=== PATIENT | female | born 1970 | race Caucasian/White ===

== ENCOUNTER → 2016-11-02 | Outpatient (CLI) | payer BC ==
[2016-11-02 17:21] LABS: Basophils % (A) 1 %; CH 30.4; CHCM 32.9; Eosinophils # (A) 0.1 k/uL (0-0.7); Eosinophils % (A) 1 %; HCT 42.2 % (34.0-46.0); HDW 2.26; HGB 13.7 gm/dL (11.4-16.0); Luc # (Auto) 0.13; Luc % (Auto) 2; Lymphocytes # (A) 1.9 k/uL (1.0-4.8); Lymphocytes % (A) 27 %; MCHC 32.4 g/dL (31.0-37.0); MCV 92.8 fL (80.0-100.0); Mean Platelet Volume 6.7; Monocytes # (A) 0.3 k/uL (0-1.0); Monocytes % (A) 5 %; Neutrophils # (A) 4.5 k/uL (1.3-7.7); Neutrophils % (A) 64 %; RBC 4.55 m/uL (3.80-5.40); RDW 12.2 % (11.5-15.5); WBC (Perox) 7.55
[2016-11-02 17:44] LABS: Anion Gap 9 mmol/L; Blood Urea Nitrogen 7 mg/dL (7-17); Carbon Dioxide 29 mmol/L (22-30); Chloride 101 mmol/L (98-107); Glucose 96 mg/dL (74-99); Non-African American GFR(MDRD) >60 (>60 ml/min/1.73 sqM); Potassium 4.6 mmol/L (3.5-5.1); Sodium 139 mmol/L (137-145)
== END | disposition home or self-care (01) ==
LOC: LABPAT 16:48
PROVIDERS: ATTEND Obstetrics & Gynecology
DX: Z01.812 Encounter for preprocedural laboratory examination (principal); D25.9 Leiomyoma of uterus, unspecified; N94.6 Dysmenorrhea, unspecified; R10.2 Pelvic and perineal pain
CPT/HCPCS: 80051; 82565; 82947; 84520; 85025; 86850; 86900; 86901

== ENCOUNTER 2016-11-09 06:25 | Day surgery (SDC) | payer BC ==
--- NOTE | 2016-11-04 11:35 | HP ---
DATE OF ADMISSION: 11/09/2016 This is a 46-year-old white female, 4, para 2-0-2-2, who presented with an increasing history of dysmenorrhea and menorrhagia. Patient has a known fibroid uterus, most recent ultrasound performed several weeks ago revealed uterine fibroids, a left clear ovarian cyst, normal endometrial thickness. Endometrial biopsy was performed and is within normal limits. FSH is 8.1. Patient has approximately 12 weeks' size uterus to clinical examination, after thorough consultation and options discussed, she would like to proceed with vaginal hysterectomy. Patient has a history of tubal ligation in the past. PAST SURGICAL HISTORY: Significant for bilateral breast augmentation, cholecystectomy, colonoscopy, sinus surgery, voluntary termination of , tubal ligation, abdominal plasty. Past medical history is significant for asthma, Jonelle's thyroiditis, irritable bowel syndrome, and colon trouble. CURRENT MEDICATIONS: 1. Adderall 10 mg daily. 2. Clarinex 5 mg daily. 3. ( ) 25 mg daily. 4. Synthroid 100 mg daily. Family history is significant for congestive heart failure, dementia, fibroid uterus, diabetes, heart disease and endometriosis. Social history is significant for caffeine daily. No alcohol, tobacco or drug use. Patient is and lives locally. Allergies include ( ) to which she reports nausea and CODEINE to which she reports emesis. Reproductive history is significant for 2 full term vaginal deliveries, menses which occur monthly, including very heavy flow with large blood clots. She complains of severe dysmenorrhea for which she is using [id number] medications. As noted, ultrasound has revealed multiple uterine fibroids, largest of which is 5 cm. On examination, this is a pleasant white female, she is 5 foot 4-1/2 inches, 193 pounds, BMI 32. Blood pressure 120/90. The HEENT exam reveals no thyromegaly, good range of motion. The chest is clear to auscultation in all castanon anteriorly and posteriorly. The cardiac exam reveals regular rate and rhythm with no murmur, click or rub. The breasts are symmetric, nontender, no skin dimpling, nipple discharge, adenopathy or discernible lesions or masses. The abdomen is moderately obese, no hepatosplenomegaly, no rebound or guarding. No CVA tenderness. Extremities reveal good range of motion and equal pulses peripherally, no edema. On pelvic exam, external genitalia is well estrogenized. Cervix is multiparous. The patient's uterus is approximately 12 weeks' size, mobile, bulky, irregular in contour. The adnexa are negative bilaterally, symmetric and mobile. Rectal exam reveals FIT negative stool, no rectal lesions or masses. IMPRESSION: A 12 week size fibroid uterus, severe dysmenorrhea, patient wishing vaginal hysterectomy. PLAN: The patient has had 2 full term vaginal deliveries and I believe vaginal hysterectomy is a reasonable approach. She understands the possible need to proceed with total abdominal hysterectomy. We have discussed the da Seble robot which in my opinion is not necessary in this scenario. She consents to bilateral salpingo-oophorectomy if the ovaries appear abnormal to inspection. We have reviewed the risks of surgery to include, but not be exclusive of bleeding, infection, perforation or damage to bladder, bowel, ureters, blood vessels, or indeed any pelvic or abdominal organs. A second opinion has been offered and declined. The ACOG pamphlet has been given to the patient, which she has reviewed thoroughly. I believe she understands our discussion with no further question or reservation.
[2016-11-04 15:07] VITALS: BMI 30.9
[~2016-11-09 06:25] MED LIST: DEXAMETHASONE SOD PHOSPHATE 10 MG/ML 1 ML VIAL IV ONE; HYDROmorphone 1 MG/ML 1 ML SYRINGE IVP PRN; MIDAZOLAM 2 MG/2 ML VIAL IV PRN; ONDANSETRON 4 MG/2 ML VIAL IVP ONE; SCOPOLAMINE 1.5MG/72HR PATCH TRANSDERM ONE; ceFAZolin 2 GM in SODIUM CHLORIDE 0.9% 100 ML IVPB ONE
[2016-11-09] MEDS ORDERED: LIDOCAINE 1% 20 ML VIAL (10MG/ML) FOR IV START INTRADERMA ONE (06:55)
[2016-11-09] MEDS: LACTATED RINGERS 1,000 ML IV SCH ×2 (06:57→13:13)
[2016-11-09] MEDS ORDERED: MIDAZOLAM 2 MG/2 ML VIAL IV ONE (07:00)
[2016-11-09] MEDS ORDERED: fentaNYL (PF) 50 MCG/ML 2 ML AMP IV ONE (07:00)
[2016-11-09] MEDS ORDERED: MIDAZOLAM 2 MG/2 ML VIAL ONE (07:26)
[2016-11-09] MEDS ORDERED: MORPHINE SULFATE (PF) 0.3 MG/0.3 ML SYR ONE (07:26)
[2016-11-09] MEDS ORDERED: KETOROLAC 30 MG/ML 1 ML VIAL ONE (07:26)
[2016-11-09] MEDS ORDERED: ROCURONIUM BROMIDE 10 MG/ML 10 ML VIAL IV ONE (07:26)
[2016-11-09] MEDS ORDERED: PROPOFOL 10 MG/ML 20 ML VIAL IV ONE (07:26)
[2016-11-09] MEDS ORDERED: fentaNYL (PF) 50 MCG/ML 2 ML AMP ONE (07:26)
[2016-11-09] MEDS ORDERED: NEOSTIGMINE 1 MG/ML 10 ML VIAL ONE (07:26)
[2016-11-09] MEDS ORDERED: GLYCOPYRROLATE 0.2 MG/ML 2 ML VIAL ONE (07:26)
[2016-11-09] MEDS ORDERED: LIDOCAINE 1% INJ 10MG/ML (20 ML MDV) ONE (07:26)
[2016-11-09] MEDS ORDERED: BACITRACIN 500 UNIT/GM OINT 28.4 GM TUBE TOPICAL ONE (07:46)
[2016-11-09] MEDS ORDERED: VASOPRESSIN 20 UNIT/ML 1 ML VIAL IM ONE (07:46)
[2016-11-09] MEDS ORDERED: LACTATED RINGERS 1,000 ML IV ONE (08:14)
[2016-11-09] MEDS ORDERED: Acetaminophen-Codeine 300-30mg TAB PO PRN (08:56)
[2016-11-09] MEDS ORDERED: KETOROLAC 30 MG/ML 1 ML VIAL IVP PRN (08:56)
[2016-11-09] MEDS ORDERED: METOCLOPRAMIDE 5 MG/ML 2 ML VIAL IVP PRN (08:56)
[2016-11-09] MEDS ORDERED: SIMETHICONE 80 MG CHEWABLE PO PRN (08:56)
[2016-11-09] MEDS ORDERED: IBUPROFEN 600 MG TAB PO PRN (08:56)
[2016-11-09] MEDS ORDERED: ACETAMINOPHEN IV (For NPO) 1,000 MG in EMPTY BAG 1 BAG IVPB ONE (08:56)
[2016-11-09] MEDS ORDERED: diphenhydrAMINE 50 MG/ML 1 ML VIAL IVP PRN ×2 (08:56→09:24)
[2016-11-09] MEDS ORDERED: ZOLPIDEM 5 MG TAB PO PRN (08:56)
[2016-11-09] MEDS ORDERED: ONDANSETRON 4 MG/2 ML VIAL IVP PRN ×2 (08:56→09:24)
--- NOTE | 2016-11-09 08:56 | P.OP ---
Date of Procedure: 11/09/16 Preoperative Diagnosis: Fibroid uterus, dysmenorrhea, pelvic pain. Postoperative Diagnosis: Fibroid uterus, normal-appearing ovaries bilaterally Procedure(s) Performed: Vaginal hysterectomy Anesthesia: KEMIA Surgeon: Pauline Ndiaye Immunology Specialist #1: Deepali Gutiérrez Estimated Blood Loss (ml): 200 IV fluids (ml): 1,400 Urine output (ml): 150 Pathology: other (Cervix and uterus) Condition: stable Disposition: PACU Description of Procedure: Patient is brought to the operating room where a general anesthetic is administered after a spinal with Duramorph placed. Patient is placed in the dorsal lithotomy position. The cervix, vagina, perineum and periurethral areas are all prepped and draped in usual sterile fashion. Antibiotics are given. Urine hCG negative. The appropriate timeout is performed to assure proper patient and procedural identification. The bladder is drained for approximately 150 mL of clear yellow urine. The weighted speculum was placed into the vagina. The anterior lip of the cervix is grasped with a double-tooth tenaculum. The cervix is injected circumferentially with a dilute Pitressin solution. A standing rock blade scalpel is used in a circumferential fashion to incise the mucosa with a V like positioning in the back. A sponge rolled finger is used to sweep the mucosa away from the underlying plane. Peritoneum is entered at 6:00, suture tied with 2-0 Vicryl and held with a hemostat. The large billed speculum is then placed into the peritoneal cavity. Charlene clamps are used and the uterosacral cardinal ligament complex these are identified, clamped and cut. They are suture ligated with 0 Vicryl and held in a fanlike fashion. 2 additional pedicles are taken to these laterally. Uterine vasculature is next identified, isolated, clamped cut and suture ligated. 2 additional pedicles are taken superior to these as well, all with 0 Vicryl suture. The anterior peritoneum was then entered. The uterus is " walked out" posteriorly. The remaining pedicles are clamped with Charlene clamps and the specimen is removed. These pedicles are suture tied with 0 Vicryl, flashed, and retied for excellent hemostasis. A sponge stick is then used to evaluate the remaining anatomy. The left ovarian cortex contains a friable area which is bleeding. 2-0 Vicryl is used in an interrupted fashion to repair this. Hemostasis is then noted to be excellent. Inspection of all pedicles at this time revealed them to be hemostatically intact. The speculum is then changed to the shallow billed speculum. The 2-0 Vicryl suture previously placed at 6:00 is brought around in a pursestring fashion to close the peritoneum. The previously held uterosacral cardinal ligament complex these are then brought across contralaterally to incorporate the opposite complex as well as vaginal mucosa. 3 additional figure -of-eight sutures are used in the vaginal cuff for final closure. Hemostasis is very good. The vagina is packed with a 1 inch iodophor gauze with basic tracing. García catheter is placed now in the urine is noted to be clear. All sponge needle and enhancement counts are correct. The patient is brought back to the recovery room in very good condition with stable vital signs including blood pressure 106/56, pulse 67, 98% O2 saturation.
[2016-11-09] MEDS ORDERED: NALOXONE 0.4 MG/ML 1 ML VIAL IV PRN (09:24)
[2016-11-09] MEDS ORDERED: MORPHINE SULFATE 4 MG/ML SYRINGE IVP PRN (09:24)
[2016-11-09 13:23] LABS: Glucose,Whole Blood 111 mg/dL (75-99)
[2016-11-10 04:14] VITALS: RESP 16
[2016-11-10] MEDS ORDERED: LEVOTHYROXINE 100 MCG TAB PO SCH (06:30)
[2016-11-10 06:42] LABS: Basophils % (A) 0 %; CH 30.2; CHCM 32.2; Eosinophils % (A) 1 %; HCT 35.8 % (34.0-46.0); HDW 2.18; HGB 11.6 gm/dL (11.4-16.0); Luc # (Auto) 0.11; Luc % (Auto) 2; Lymphocytes # (A) 1.7 k/uL (1.0-4.8); Lymphocytes % (A) 25 %; MCH 30.6 pg (25.0-35.0); MCHC 32.5 g/dL (31.0-37.0); Monocytes # (A) 0.4 k/uL (0-1.0); Monocytes % (A) 6 %; Neutrophils # (A) 4.5 k/uL (1.3-7.7); Neutrophils % (A) 68 %; RBC 3.81 m/uL (3.80-5.40); RDW 12.4 % (11.5-15.5); WBC 6.7 k/uL (3.8-10.6); WBC (Perox) 7.14
--- NOTE | 2016-11-10 07:53 | P.DS ---
Providers Expected date of discharge: 11/10/16 Attending physician: Pauline Ndiaye Primary care physician: [facility] Course: This is a 46-year-old female who presented with a history of increasing pelvic pain, dysmenorrhea and fibroid uterus. After thorough discussion and consultation, she elected to proceed with vaginal hysterectomy. Uterus was 12- 14 weeks size, risks and benefits of the procedure were reviewed in detail. Please see my dictated history and physical for details. Patient was admitted and underwent a vaginal hysterectomy under my care. She did well intraoperatively, ovaries appeared normal and were left in situ. Uterus is quite enlarged, multiple fibroids noted, sent to pathology for evaluation. Please see my dictated operative note for details. García catheter was placed and vaginal packing was placed as well. Through the night patient has done extremely well. This morning the vaginal packing and the García catheter has been removed. Postoperative hemoglobin 11.6 , white count 6.7, platelets 282,000. Patient is ambulating, passing flatus, and doing well. She has been advanced to regular diet. Her vital signs have been stable and she is afebrile. There is only scant vaginal drainage. No CVA tenderness, extremities negative, chest clear. Bladder training has now commenced. If she does well with a postvoid residual of less than 100, she will be discharged home later this morning. I have reminded her no intercourse, tampons or douching. She will use over-the- counter Advil or Motrin as needed for pain. I've asked her to call me with any fevers shakes or chills, vaginal bleeding greater than minimal amount, with any pain not alleviated by [id number]-[id number] products, with any difficulties with voiding, or indeed with any concerns. She is reminded no heavy lifting, no driving for 2 weeks. Patient Condition at Discharge: Good Plan - Discharge Summary Discharge Medication List Desloratadine [Clarinex] 10 mg PO QAM 11/04/16 [History] Levothyroxine Sodium [Synthroid] 100 mcg PO QAM 11/04/16 [History] Liothyronine Sodium [Cytomel] 25 mcg PO QAM 11/04/16 [History] Follow up Appointment(s)/Referral(s): Pauline Ndiaye MD [STAFF PHYSICIAN] - 2 Weeks Discharge Disposition: HOME SELF-CARE
[2016-11-10] MEDS ORDERED: ACETAMINOPHEN TAB 325 MG TAB PO PRN (08:57)
[2016-11-10] MEDS ORDERED: LIOTHYRONINE SODIUM 5 MCG TAB PO SCH (09:00)
[2016-11-10] MEDS ORDERED: ONDANSETRON 4 MG/2 ML VIAL IVP PRN (10:00)
[2016-11-10 10:21] VITALS: BP 101/64; PULSE 89; TEMP 98.1
--- NOTE | 2016-11-10 10:31 | P.PN ---
Progress Note - Text Postoperative day 1 status post vaginal hysterectomy under General anesthesia, and intrathecal morphine given for postoperative analgesia, patient doing well, there is no anesthesia related complications, further management as per her primary team
== END 2016-11-10 10:50 | disposition home or self-care (01) ==
LOC: OR 06:25 → 6PED 08:49 → OR 11-10 10:50
PROVIDERS: ATTEND Obstetrics & Gynecology
DX: N87.9 Dysplasia of cervix uteri, unspecified (principal); D25.2 Subserosal leiomyoma of uterus; E06.3 Autoimmune thyroiditis; Z79.899 Other long term (current) drug therapy; Z88.5 Allergy status to narcotic agent
CPT/HCPCS: 81025; 85025; 88307; 58260; J2250; J1100; J0690; J2405; J3010; J1885; J1170; 86850; 86900; 86901

== ENCOUNTER → 2017-12-06 | Outpatient (CLI) | payer BC ==
[2017-12-07 13:31] LABS: Avocado Class CLASS 0; Banana IgE Class CLASS 0; Cow's Milk IgE Class CLASS 0; Egg White IgE <0.35 kU/L (<0.35); Hazelnut IgE <0.35 kU/L (<0.35); Hazelnut IgE Class CLASS 0; Kiwi IgE <0.35 kU/L (<0.35); Latex IgE Class CLASS 0; Peanut IgE <0.35 kU/L (<0.35); Potato IgE <0.35 kU/L (<0.35); Potato IgE Class CLASS 0; Soybean IgE <0.35 kU/L (<0.35)
== END | disposition home or self-care (01) ==
LOC: LABWHC1 11:56
PROVIDERS: ATTEND Otolaryngology
DX: L50.9 Urticaria, unspecified (principal); R21 Rash and other nonspecific skin eruption
CPT/HCPCS: 36415; 86003; 86618

== ENCOUNTER → 2018-10-17 | Outpatient (CLI) | payer BC ==
--- NOTE | 2018-10-17 13:11 | US ---
EXAMINATION TYPE: US thyroid st tissue head/neck DATE OF EXAM: 10/17/2018 COMPARISON: NONE CLINICAL HISTORY: E03.8 Other specified hypothyroidism. Jonelle's thyroiditis, patient on thyroid m eds GLAND SIZE: Right Lobe: 3.1 x 1.0 x 1.0 cm Overall Parenchyma: heterogenous Left Lobe: 2.9 x 1.0 x 1.0 cm Overall Parenchyma: heterogeneous Isthmus Thickness: 0.2 cm NODULES RIGHT: # of nodules measured on right: 0 LEFT: # of nodules measured on left: 0 ISTHMUS: # of nodules measured in the isthmus: 0 Bilateral neck scanned, no evidence of lymphadenopathy. Heterogeneous small size thyroid is present without discrete nodules on images saved. IMPRESSION: As above.
[2018-10-17 14:27] LABS: Total Protein 6.5 g/dL (6.3-8.2)
[2018-10-17 14:45] LABS: T4, Free (Free Thyroxine) 1.32 ng/dL (0.78-2.19)
== END | disposition home or self-care (01) ==
LOC: RADUSWWP 12:49
PROVIDERS: ATTEND Internal Medicine Endocrinology, Diabetes & Metabolism
DX: E03.8 Other specified hypothyroidism (principal); R53.83 Other fatigue
CPT/HCPCS: 76536; 82533; 82607; 84146; 84155; 84439; 84443; 84481

== ENCOUNTER → 2018-11-13 | Outpatient (CLI) | payer BC | END | disposition home or self-care (01) | LOC: LABWHC1 12:52 | PROVIDERS: ATTEND Internal Medicine Endocrinology, Diabetes & Metabolism | DX: E03.8 Other specified hypothyroidism (principal); R53.83 Other fatigue | CPT/HCPCS: 36415; 82024; 82533 ==

== ENCOUNTER → 2018-12-05 | Outpatient (CLI) | payer BC ==
--- NOTE | 2018-12-05 11:57 | MR ---
EXAMINATION TYPE: MR pituitary wo/w con DATE OF EXAM: 12/05/2018 COMPARISON: MR brain 12/01/2009 HISTORY: Hypothyroidism / Other fatigue TECHNIQUE: Multiplanar, multisequence images of the sella turcica is performed without and with IV contrast, uti lizing 9 mL intravenous Gadavist . FINDINGS: Pituitary gland shows a stable configuration. No evident microadenoma. Enhancement is sparkle l. There are normal vascular flow voids. Midline structures demonstrate normal morphology. The craniocervical junction appears within normal limits. No hydrocephalus evident. No hemorrhage. IMPRESSION: Normal pituitary.
== END ==
LOC: RADMRIMAIN 08:55
PROVIDERS: ATTEND Internal Medicine Endocrinology, Diabetes & Metabolism
DX: E03.8 Other specified hypothyroidism (principal); R53.83 Other fatigue
CPT/HCPCS: 70553; A9585

== ENCOUNTER → 2019-03-13 | Outpatient (CLI) | payer BC | END | disposition home or self-care (01) | LOC: LABWHC1 09:49 | PROVIDERS: ATTEND Internal Medicine Endocrinology, Diabetes & Metabolism | DX: E03.8 Other specified hypothyroidism (principal); E27.40 Unspecified adrenocortical insufficiency | CPT/HCPCS: 36415; 82024; 82533; 84443 ==

== ENCOUNTER → 2019-05-17 | Outpatient (CLI) | payer BC | END | disposition home or self-care (01) | LOC: LABWHC1 10:01 | PROVIDERS: ATTEND Internal Medicine Endocrinology, Diabetes & Metabolism | DX: E03.8 Other specified hypothyroidism (principal); E27.40 Unspecified adrenocortical insufficiency | CPT/HCPCS: 36415; 82533; 84443 ==

== ENCOUNTER → 2019-07-05 | Outpatient (CLI) | payer BC ==
[2019-07-05 17:56] LABS: T4, Free (Free Thyroxine) 1.3 ng/dL (0.80-1.80)
[2019-07-05 22:21] LABS: ACTH <5.00 pg/mL (0.00-45.99)
== END | disposition home or self-care (01) ==
LOC: LABWHC1 09:09
PROVIDERS: ATTEND Internal Medicine Endocrinology, Diabetes & Metabolism
DX: E03.8 Other specified hypothyroidism (principal); E27.40 Unspecified adrenocortical insufficiency
CPT/HCPCS: 36415; 82024; 82533; 84439; 84443; 84480

== ENCOUNTER → 2019-10-02 | Outpatient (CLI) | payer BC ==
[2019-10-02 16:34] LABS: ALT 15 U/L (4-34); AST 22 U/L (14-36); African American GFR (CKD) >90 (>60 ml/min/1.73 sqM); Albumin 4.3 g/dL (3.5-5.0); Alkaline Phosphatase 66 U/L (38-126); Anion Gap 5 mmol/L; Blood Urea Nitrogen 7 mg/dL (7-17); C Reactive Protein 5.7 mg/L (<10.0); Calcium 9.8 mg/dL (8.4-10.2); Carbon Dioxide 30 mmol/L (22-30); Chloride 106 mmol/L (98-107); Creatine Kinase 111 U/L (30-135); Glucose 93 mg/dL (74-99); Non-African American GFR(CKD) >90 (>60 ml/min/1.73 sqM); Potassium 4.2 mmol/L (3.5-5.1); Sodium 141 mmol/L (137-145); Total Bilirubin 0.5 mg/dL (0.2-1.3)
[2019-10-02 16:40] LABS: Basophils % (A) 1 %; Eosinophils # (A) 0.1 k/uL (0-0.7); Eosinophils % (A) 2 %; HCT 42.1 % (34.0-46.0); HGB 13.9 gm/dL (11.4-16.0); Lymphocytes # (A) 1.3 k/uL (1.0-4.8); Lymphocytes % (A) 38 %; MCH 31.3 pg (25.0-35.0); MCV 94.6 fL (80.0-100.0); Mean Platelet Volume 7.2; Monocytes # (A) 0.2 k/uL (0-1.0); Monocytes % (A) 6 %; Neutrophils # (A) 1.8 k/uL (1.3-7.7); Neutrophils % (A) 52 %; Platelet Count 318 k/uL (150-450); RBC 4.45 m/uL (3.80-5.40); RDW 12.8 % (11.5-15.5); WBC 3.5 k/uL (3.8-10.6)
[2019-10-02 16:48] LABS: T4, Free (Free Thyroxine) 0.61 ng/dL (0.78-2.19)
[2019-10-02 17:43] LABS: Erythrocyte Sedimentation Rate 9 mm/hr (0-20)
[2019-10-02 23:49] LABS: Cancer Antigen 125 7.4 U/mL (0.0-30.1)
--- NOTE | 2019-10-03 05:19 | CT ---
EXAMINATION TYPE: CT abdomen pelvis w con DATE OF EXAM: 10/02/2019 COMPARISON: NONE HISTORY: 49-year-old female RLQ pain. X68.28, R05, R06.02. Ulcerative colitis, unspecified with othe r complication. TECHNIQUE: Contiguous axial scanning of the abdomen and pelvis following administration of 100 ml Iso rachel 300 IV contrast. Delayed images through the kidneys and coronal/sagittal reconstructions perform ed. CT DLP: 1639 mGycm Automated exposure control for dose reduction was used. FINDINGS: Partially visualized bilateral breast implants. Heart normal size without pericardial effusion. Band of atelectasis or scarring at the peripheral left base. Partially visualized 7 mm subpleural pulmonary nodule peripheral right lower lobe. Axial image 1. No pleural effusion. Small hiatal hernia. No focal liver lesion or biliary ductal dilatation. Portal venous system is patent. Cholecystectomy c lips. Adrenal glands, kidneys, spleen, and pancreas appear within normal limits. Few scattered prominent and borderline to mildly enlarged mesenteric lymph nodes measure up to 1.0 cm , refer to coronal image 34. There is a round mass in the left upper quadrant located just below the spleen measuring 5.9 x 5.2 cm . This shows avid postcontrast enhancement with mild heterogeneity. The heterogeneity makes a large v isceral artery aneurysm less likely. Normal appendix. Oral contrast progressed to the splenic flexure. Scattered mild to moderate stool bu rden. Scattered left-sided colonic diverticulosis. No pericolonic inflammatory change. Bladder distended. Multiple pelvic phleboliths. Uterus surgically absent. Neither ovary is clearly id entified. No abnormal fluid collection in the pelvis or pelvic lymphadenopathy. Bones: Degenerative disc disease L5-S1 and facet arthropathy. IMPRESSION: 1. AVIDLY ENHANCING MASS MEASURING 5.9 X 5.2 CM IN THE LEFT UPPER QUADRANT LOCATED BELOW THE SPLEEN. THE SLIGHT HETEROGENEOUS ENHANCEMENT MAKES A LARGE VISCERAL ARTERY ANEURYSM LESS LIKELY. HOWEVER, THI S POSSIBILITY SHOULD BE MORE CLEARLY EXCLUDED PRIOR TO CONSIDERATION TO TISSUE SAMPLING AND DIAGNOSIS . CONSIDER LEFT UPPER QUADRANT ULTRASOUND AND/OR MULTIPHASIC MRI. 2. MILD TO MODERATE STOOL BURDEN. NO SPECIFIC CT FINDINGS OF COLITIS AT THIS TIME. 3. SCATTERED NONENLARGED BORDERLINE AND MILDLY ENLARGED MESENTERIC LYMPH NODES MEASURING UP TO 1 CM, LIKELY REACTIVE/POST INFLAMMATORY. 4. A 7 MM SUBPLEURAL PULMONARY NODULE RIGHT LOWER LOBE PARTIALLY VISUALIZED. THIS IS NONSPECIFIC. REC OMMEND CONTRAST-ENHANCED CT CHEST TO SURVEY THE ENTIRE LUNGS. 5. SMALL HIATAL HERNIA.
[2019-10-04 12:57] LABS: Enterovirus PCR Not detected (Not detected); Enterovirus Source Feces
== END | disposition home or self-care (01) ==
LOC: RADCTMAIN 15:14
PROVIDERS: ATTEND Family Medicine
DX: K44.9 Diaphragmatic hernia without obstruction or gangrene (principal); R91.1 Solitary pulmonary nodule; R59.0 Localized enlarged lymph nodes; R19.02 Left upper quadrant abdominal swelling, mass and lump; E03.9 Hypothyroidism, unspecified; R10.30 Lower abdominal pain, unspecified; D51.9 Vitamin B12 deficiency anemia, unspecified; R19.7 Diarrhea, unspecified
CPT/HCPCS: 87498; 84439; 84481; 80053; 86304; 85652; 82550; 84443; 85025; 86140; 87324; 87045; 87046; 84145; 74177; 36415; Q9967

== ENCOUNTER → 2019-10-18 | Outpatient (CLI) | payer BC ==
--- NOTE | 2019-10-18 11:02 | MR ---
EXAMINATION TYPE: MR abdomen wo/w con DATE OF EXAM: 10/18/2019 COMPARISON: CT 10/02/2019 HISTORY: LLQ abdominal swelling, Abnormal CT CONTRAST: Standard multiplanar, multisequence MRI departmental protocol utilizing 10 mL intravenous Gadavist ga dolinium contrast. FINDINGS: There is a round mass in the left upper quadrant just below the spleen measuring 6 x 5.2 cm . This shows enhancement postcontrast administration. The signal voids noted centrally within the mass suggestive of a highly vascular mass. Adjacent surro unding varices are noted. Adrenal glands, kidneys, spleen, and pancreas appear within normal limits. Shotty adenopathy in the mesentery on the CT scan again noted. No focal liver lesion or biliary ductal dilation. Portal venous system is patent. Cholecystectomy cli ps noted. 7 mm subpleural pulmonary nodule right lower lobe noted by CT scan not as well-seen by MRI. Bowel gas pattern nonspecific. Aorta of normal caliber. Diverticulosis noted. Osseous structures appe ar to be intact with evidence of facet arthropathy and degenerative change involving the lower lumbar spine IMPRESSION: 1. Stable appearing enhancing 6 cm mass in the left upper quadrant. It contains internal flow voids. Adjacent varices are noted. A highly vascular mass is suspected over aneurysm. Recommend ultrasound w ith Doppler to confirm that there is no possibility of aneurysm. Surgical consultation recommended.
== END | disposition home or self-care (01) ==
LOC: RADMRIMAIN 07:19
PROVIDERS: ATTEND Family Medicine
DX: R19.02 Left upper quadrant abdominal swelling, mass and lump (principal); I86.8 Varicose veins of other specified sites
CPT/HCPCS: 74183; A9585

== ENCOUNTER → 2019-10-23 | Outpatient (CLI) | payer BC ==
--- NOTE | 2019-10-23 08:21 | CT ---
EXAMINATION TYPE: CT chest w con DATE OF EXAM: 10/23/2019 COMPARISON: None HISTORY: solitary pulmonary nodule seen on prior CT CT DLP: 401.6 mGycm Automated exposure control for dose reduction was used. CONTRAST: CT scan of the chest is performed with IV Contrast, patient injected with 100 mL of Isovue 300. FINDINGS: LUNGS: 5.2 mm pleural-based nodule right lower lobe image 35. No additional pulmonary nodules identif ied. Left lower lobe linear atelectasis. No infiltrate or volume loss. There is no pleural effusion o r pneumothorax seen. The tracheobronchial tree is patent. MEDIASTINUM: There are no greater than 1 cm hilar or mediastinal lymph nodes. No pericardial effusi on is seen. Thoracic aorta is of normal caliber. The heart is not enlarged. UPPER ABDOMEN: Previously described left upper quadrant mass adjacent to the spleen is partially edilson ged. OTHER: No additional significant abnormality is seen. IMPRESSION: 1. 5.2 mm pleural-based nodule right lower lobe. Six-month follow-up advised.
== END | disposition home or self-care (01) ==
LOC: RADCTMAIN 07:33
PROVIDERS: ATTEND Family Medicine
DX: R91.1 Solitary pulmonary nodule (principal)
CPT/HCPCS: 71260; Q9967

== ENCOUNTER → 2019-10-29 | Outpatient (CLI) | payer BC ==
--- NOTE | 2019-10-29 08:45 | US ---
EXAMINATION TYPE: US duplex aorta DATE OF EXAM: 10/29/2019 COMPARISON: MRI 10/18/2019 CLINICAL HISTORY: I71.4 Abdominal aortic aneurysm, without rupture. Per patient and MRI report, [facility] k spleen mass for vascularity. EXAM MEASUREMENTS: Abdominal Aorta: Proximal: 2.1 x 1.9 cm Mid: 1.7 x 1.9 cm Distal: 1.4 x 1.4 cm Bifurcation: Right- 1.1 x 0.7 cm Left- 0.9 x 0.8 cm LUQ scanned. Round mass visualized = 4.6 x 4.4 x 4.5 cm and appears vascular with venous and duong rial flow. IMPRESSION: 1. The perisplenic mass appears highly vascular containing both arterial and venous waveforms. There is no clear connection on ultrasound to an adjacent artery and thrombosed aneurysm is therefore less likely. Surgical consultation is again recommended. 2. No sonographic evidence of abdominal aortic aneurysm.
== END | disposition home or self-care (01) ==
LOC: RADUSMAIN 07:48
PROVIDERS: ATTEND Family Medicine
DX: D73.89 Other diseases of spleen (principal)
CPT/HCPCS: 93979

== ENCOUNTER → 2019-11-15 | Outpatient (CLI) | payer BC ==
--- NOTE | 2019-11-15 15:11 | CT ---
EXAMINATION TYPE: CT angio abdomen pelvis DATE OF EXAM: 11/15/2019 COMPARISON: 10/02/2019 CT, 10/18/2019 MRI. INDICATION: Splenic aneurysm? , Mass found on upper left abdomen, follow up to prior study. DLP: 2949 mGycm, Automated exposure control for dose reduction was used. CONTRAST: 100 mL of Isovue 370. Study performed without Oral Contrast TECHNIQUE: Axial images were obtained from above the diaphragm to the pubic rami in the axial plane a t 5 mm thick sections. Reconstructed images are reviewed on the computer in the coronal plane. FINDINGS: Limited CT sections are obtained the lung bases. The lung bases are clear. Bilateral breast prosthe ses are present. CT ABDOMEN: Liver: Normal Spleen: Largely homogenous density. At the anterior tip of the spleen is a heterogenous slightly hype rdense density measuring 5.0 x 6.0 cm. This appears to have some homogenous enhancement. Given adjace nt vascularity aneurysm is favored. Recommend angiography confirmation. Embolization could then be pe rformed at the same time if aneurysm is confirmed. Pancreas: Normal Adrenal glands: The adrenal glands are normal. Gallbladder: Surgically absent Kidneys: No masses are evident. No hydronephrosis is present. No cysts are present. Delayed images were obtained through the kidneys, which remain unremarkable. Aorta: Vascular calcification is within the aorta. Inferior vena cava: Normal. CT PELVIS: Loops of bowel within the abdomen and pelvis are normal. There are diverticuli present within the sigmoid colon. Studies without oral contrast limiting bowel evaluation. Appendix: Normal as visualized. Urinary bladder: Decompressed with limited evaluation Genitourinary structures: Uterus and ovaries are not identified Osseous structures: No suspicious lytic or sclerotic lesions. Facet degenerative changes are present IMPRESSIONS: 1. 5 x 6 cm rounded enhancing area adjacent to the spleen most likely is a large aneurysm. Arteriogr aphy can be performed for confirmation. Embolization at that time following confirmation could be per formed.
== END | disposition home or self-care (01) ==
LOC: RADCTMAIN 07:36
PROVIDERS: ATTEND Surgery
DX: I72.8 Aneurysm of other specified arteries (principal)
CPT/HCPCS: 74174; Q9967

== ENCOUNTER → 2020-01-14 | Outpatient (CLI) | payer BC ==
[2020-01-14 15:33] LABS: T4, Free (Free Thyroxine) 1.3 ng/dL (0.80-1.80)
== END | disposition home or self-care (01) ==
LOC: LABWHC1 10:35
PROVIDERS: ATTEND Family Medicine
DX: E03.9 Hypothyroidism, unspecified (principal)
CPT/HCPCS: 36415; 84439; 84443; 84481

== ENCOUNTER → 2020-02-08 | Outpatient (CLI) | payer BC ==
--- NOTE | 2020-02-08 09:08 | XR ---
EXAMINATION TYPE: XR chest 2V DATE OF EXAM: 02/08/2020 COMPARISON: NONE TECHNIQUE: PA and lateral views submitted. HISTORY: None FINDINGS: The lungs are clear and there is no pneumothorax, pleural effusion, or focal pneumonia. No overt fa ilure. Heart size normal. Hypertrophic change of the spine. Mild hyperinflation. Small nodule seen by chest CT is not well-seen by standard x-ray. IMPRESSION: 1. No acute process.
[2020-02-08 10:24] LABS: Basophils % (A) 0 %; Eosinophils % (A) 1 %; HCT 44.8 % (34.0-46.0); HGB 14.2 gm/dL (11.4-16.0); Lymphocytes # (A) 1.5 k/uL (1.0-4.8); Lymphocytes % (A) 31 %; MCH 30.3 pg (25.0-35.0); MCHC 31.7 g/dL (31.0-37.0); MCV 95.7 fL (80.0-100.0); Mean Platelet Volume 7.3; Monocytes # (A) 0.3 k/uL (0-1.0); Monocytes % (A) 6 %; Neutrophils # (A) 2.8 k/uL (1.3-7.7); Neutrophils % (A) 60 %; Platelet Count 339 k/uL (150-450); RBC 4.68 m/uL (3.80-5.40); RDW 13.2 % (11.5-15.5); WBC 4.7 k/uL (3.8-10.6)
[2020-02-08 10:30] LABS: INR 0.9 (<1.2); Prothrombin Time 9.8 sec (9.0-12.0)
[2020-02-08 10:35] LABS: ALT 16 U/L (4-34); AST 21 U/L (14-36); African American GFR (CKD) >90 (>60 ml/min/1.73 sqM); Albumin 4.6 g/dL (3.5-5.0); Alkaline Phosphatase 78 U/L (38-126); Anion Gap 10 mmol/L; Blood Urea Nitrogen 13 mg/dL (7-17); Calcium 9.8 mg/dL (8.4-10.2); Carbon Dioxide 28 mmol/L (22-30); Chloride 99 mmol/L (98-107); Glucose 103 mg/dL (74-99); Magnesium 1.9 mg/dL (1.6-2.3); Non-African American GFR(CKD) >90 (>60 ml/min/1.73 sqM); Sodium 137 mmol/L (137-145); Total Bilirubin 0.7 mg/dL (0.2-1.3); Total Protein 7.6 g/dL (6.3-8.2)
[2020-02-08 10:38] LABS: Potassium 4.5 mmol/L (3.5-5.1)
[2020-02-08 15:32] LABS: % Iron Saturation 23.72 (12.00-45.00); Iron 93 ug/dL (50-170); Total Iron Binding Capacity 392 ug/dL (228-460)
[2020-02-08 15:42] LABS: Ferritin 45.2 ng/mL (10.0-291.0)
[2020-02-08 16:09] LABS: Cancer Antigen 125 8.3 U/mL (0.0-30.1)
== END | disposition home or self-care (01) ==
LOC: LABPAT 08:40
PROVIDERS: ATTEND Family Medicine
DX: Z01.818 Encounter for other preprocedural examination (principal); R53.82 Chronic fatigue, unspecified
CPT/HCPCS: 71046; 80053; 82024; 82533; 82728; 83540; 83550; 83735; 85025; 85610; 86304

== ENCOUNTER → 2020-09-15 | Outpatient (CLI) | payer BC | END | disposition home or self-care (01) | LOC: LABPAT 16:18 | PROVIDERS: ATTEND Surgery | DX: U07.1 COVID-19 (principal) | CPT/HCPCS: U0003; C9803 ==

== ENCOUNTER → 2020-09-29 | Outpatient (CLI) | payer BC | END | disposition home or self-care (01) | LOC: LABWHC1 14:39 | PROVIDERS: ATTEND Surgery | DX: Z20.828 Contact with and (suspected) exposure to other viral communicable diseases (principal) | CPT/HCPCS: U0003; C9803 ==

== ENCOUNTER → 2020-11-04 | Outpatient (CLI) | payer BC ==
[2020-11-04 15:30] LABS: Basophils # (A) 0 X 10*3/uL (0.00-0.10); Basophils % (A) 0 %; Eosinophils # (A) 0 X 10*3/uL (0.04-0.35); Eosinophils % (A) 0 %; HCT 42.8 % (37.2-46.3); HGB 13.8 g/dL (12.0-15.0); Lymphocytes # (A) 1.24 X 10*3/uL (0.90-5.00); Lymphocytes % (A) 25.8 %; MCH 30.9 pg (27.0-32.0); MCHC 32.2 g/dL (32.0-37.0); Mean Platelet Volume 9.8 fL (9.5-12.2); Monocytes # (A) 0.35 X 10*3/uL (0.20-1.00); Monocytes % (A) 7.3 %; Neutrophils % (A) 66.5 %; Platelet Count 298 X 10*3/uL (140-440); RBC 4.46 X 10*6/uL (4.10-5.20); RDW 12.6 % (11.5-14.5); WBC 4.81 X 10*3/uL (4.50-10.00)
[2020-11-04 15:44] LABS: Albumin 4.9 g/dL (3.80-4.90); Albumin/Globulin Ratio 2.72 (1.60-3.17); Anion Gap 6.6 mmol/L (4.00-12.00); BUN/Creat Ratio 14.44 Ratio (12.00-20.00); Calcium 9.5 mg/dL (8.7-10.3); Carbon Dioxide 30.4 mmol/L (21.6-31.8); Chol/HDL Ratio 2.67; Globulin 1.8 g/dL (1.6-3.3); Non-African American GFR(CKD) 75.1 (60.0-200.0); Potassium 4.3 mmol/L (3.5-5.5); Total Bilirubin 0.7 mg/dL (0.2-1.2); Total Protein 6.7 g/dL (6.2-8.2)
[2020-11-04 18:47] LABS: ACTH <5.00 pg/mL (0.00-45.99)
== END | disposition home or self-care (01) ==
LOC: LABWHC1 10:16
PROVIDERS: ATTEND Family Medicine
DX: E03.9 Hypothyroidism, unspecified (principal); E27.1 Primary adrenocortical insufficiency; R53.82 Chronic fatigue, unspecified; D51.9 Vitamin B12 deficiency anemia, unspecified
CPT/HCPCS: 36415; 80053; 80061; 82024; 82533; 82607; 84480; 85025

== ENCOUNTER → 2020-11-04 | Outpatient (CLI) | payer BC | END | disposition home or self-care (01) | LOC: LABPAT 10:28 | PROVIDERS: ATTEND Surgery | DX: Z20.822 Contact with and (suspected) exposure to COVID-19 (principal) | CPT/HCPCS: U0003; C9803 ==

== ENCOUNTER → 2021-01-27 | Outpatient (CLI) | payer BC ==
[2021-01-27 17:18] LABS: Basophils # (A) 0.01 X 10*3/uL (0.00-0.10); Basophils % (A) 0.2 %; Eosinophils # (A) 0 X 10*3/uL (0.04-0.35); Eosinophils % (A) 0 %; HCT 42.8 % (37.2-46.3); HGB 13.8 g/dL (12.0-15.0); Lymphocytes # (A) 1.48 X 10*3/uL (0.90-5.00); Lymphocytes % (A) 33.3 %; MCH 30.7 pg (27.0-32.0); MCHC 32.2 g/dL (32.0-37.0); MCV 95.1 fL (80.0-97.0); Mean Platelet Volume 10.1 fL (9.5-12.2); Monocytes # (A) 0.45 X 10*3/uL (0.20-1.00); Monocytes % (A) 10.1 %; Neutrophils # (A) 2.48 X 10*3/uL (1.80-7.70); Neutrophils % (A) 55.9 %; Platelet Count 268 X 10*3/uL (140-440); RDW 12.3 % (11.5-14.5); WBC 4.44 X 10*3/uL (4.50-10.00)
[2021-01-28 01:56] LABS: African American GFR (CKD) 117.9 (60.0-200.0); Albumin 4.6 g/dL (3.80-4.90); Albumin/Globulin Ratio 2.42 (1.60-3.17); Anion Gap 13.9 mmol/L (4.00-12.00); BUN/Creat Ratio 18.57 Ratio (12.00-20.00); Calcium 9.5 mg/dL (8.7-10.3); Carbon Dioxide 25.1 mmol/L (21.6-31.8); Globulin 1.9 g/dL (1.6-3.3); Non-African American GFR(CKD) 101.7 (60.0-200.0); Potassium 4.8 mmol/L (3.5-5.5); Total Bilirubin 0.5 mg/dL (0.2-1.2); Total Protein 6.5 g/dL (6.2-8.2)
[2021-01-28 02:04] LABS: T4, Free (Free Thyroxine) 1.4 ng/dL (0.80-1.80)
== END | disposition home or self-care (01) ==
LOC: LABWHC1 09:41
PROVIDERS: ATTEND Family Medicine
DX: E03.9 Hypothyroidism, unspecified (principal); E27.1 Primary adrenocortical insufficiency
CPT/HCPCS: 36415; 80053; 82533; 82626; 84439; 84443; 84480; 85025

== ENCOUNTER 2021-02-09 08:02 | Observation (INO) | payer BC ==
[2021-02-05 08:33] VITALS: BMI 36.6
[~2021-02-09 08:02] MED LIST changes: +ACETAMINOPHEN TAB 500 MG TAB PO PRN; -DEXAMETHASONE SOD PHOSPHATE 10 MG/ML 1 ML VIAL IV ONE; +DEXAMETHASONE SOD PHOSPHATE 4 MG/ML 1 ML VIAL IV ONE; +HEPARIN SODIUM,PORCINE/PF 5,000 UNIT/0.5 ML SYRINGE SQ PRN; -HYDROmorphone 1 MG/ML 1 ML SYRINGE IVP PRN; -ceFAZolin 2 GM in SODIUM CHLORIDE 0.9% 100 ML IVPB ONE; +fentaNYL (PF) 50 MCG/ML 2 ML AMP IV PRN
[2021-02-09] MEDS: LACTATED RINGERS 1,000 ML IV SCH (08:43)
[2021-02-09] MEDS ORDERED: LIDOCAINE 1% (10MG/ML) FOR IV START INTRADERMA ONE (08:43)
[2021-02-09] MEDS ORDERED: fentaNYL (PF) 50 MCG/ML 2 ML AMP IVP ONE (09:01)
[2021-02-09] MEDS ORDERED: ROCURONIUM 10 MG/ML (5 ML VIAL) IV ONE (10:06)
[2021-02-09] MEDS ORDERED: ROPIVACAINE 5 MG/ML 30 ML VIAL ONE (10:06)
[2021-02-09] MEDS ORDERED: SODIUM CHLORIDE 0.9% (PF) 10 ML VIAL ONE (10:06)
[2021-02-09] MEDS ORDERED: LIDOCAINE 1% INJ 10MG/ML (20 ML MDV) ONE (10:06)
[2021-02-09] MEDS ORDERED: ePHEDrine SULFATE/0.9% NACL/PF 50 MG/5 ML SYRINGE IV ONE (10:06)
[2021-02-09] MEDS ORDERED: MIDAZOLAM 2 MG/2 ML VIAL ONE (10:06)
[2021-02-09] MEDS ORDERED: SUCCINYLCHOLINE CHLORIDE 100 MG/5 ML SYR IV ONE (10:06)
[2021-02-09] MEDS ORDERED: GLYCOPYRROLATE 0.2 MG/ML 2 ML VIAL ONE (10:06)
[2021-02-09] MEDS ORDERED: fentaNYL (PF) 50 MCG/ML 2 ML AMP ONE (10:06)
[2021-02-09] MEDS ORDERED: NEOSTIGMINE 1 MG/ML 10 ML VIAL ONE (10:06)
[2021-02-09] MEDS ORDERED: HYDROmorphone (PF) 1 MG/ML ONE (10:06)
[2021-02-09] MEDS ORDERED: PROPOFOL 10 MG/ML 20 ML VIAL IV ONE (10:06)
[2021-02-09] MEDS ORDERED: BUPIVACAIN-EPI 0.5%-1:200,000 30 ML VIAL SQ ONE (10:13)
[2021-02-09] MEDS ORDERED: LACTATED RINGERS 1,000 ML IV ONE (11:48)
[2021-02-09] MEDS ORDERED: NALOXONE 0.4 MG/ML 1 ML VIAL IV PRN (12:01)
[2021-02-09] MEDS ORDERED: ACETAMINOPHEN TAB 325 MG TAB PO PRN (12:03)
[2021-02-09] MEDS ORDERED: ONDANSETRON 4 MG/2 ML VIAL IVP PRN (12:03)
--- NOTE | 2021-02-09 12:11 | P.OP ---
Date of Procedure: 02/09/21 Procedure(s) Performed: Preoperative diagnosis: Reducible incisional hernia Postoperative diagnosis: Same Procedure: Repair reducible incisional hernia with mesh Surgeon: Dr. Estevez Anesthesia: Gen. Operative procedure details: Patient placed on the operating table in the supine position. Abdomen was prepped and draped in usual sterile fashion. The previous incision was re-incised and lengthened somewhat superiorly. Dissection through the subcutaneous tissues took place using electrocautery. A large hernia was identified. The hernia sac was carefully dissected down to the level of the fascia where it was excised. There were some adhesions to the hernia sac that were lysed using sharp dissection and electrocautery. Once we had the fascia circumferentially cleared the 11 x 14 cm mesh was placed beneath the peritoneal surface. This was then sutured in place using trans-fascial 0 Ethibond sutures. The fascia was reapproximated vertically using [id number] #2 Ethibond sutures in an interrupted fashion. A drain was placed anterior to the fascial closure exiting through the right lower quadrant. This was sutured to the skin using a 3-0 silk stitch. The subcutaneous tissues were closed using 3-0 Vicryl sutures. The skin was closed using running 4-0 Monocryl suture. Skin glue were applied. Hernia characteristics: Length: 10 cm Width: 7 cm Type: Reducible incisional Type of mesh use: 11 x [address] Location of mesh: Sub-lay Fixation: 0 Ethibond suture DISPOSITION: Stable to recovery room
[2021-02-09] MEDS: HYDROmorphone 0.5 MG/0.5 ML SYRINGE IVP PRN ×4 (12:30→20:39)
[2021-02-09] MEDS: KETOROLAC 15 MG/ML 1 ML VIAL IVP PRN ×2 (16:17→23:21)
[2021-02-09] MEDS: HEPARIN SODIUM,PORCINE/PF 5,000 UNIT/0.5 ML SYRINGE SQ SCH ×2 (16:18→23:22)
[2021-02-09] MEDS: D5-0.45% NACL WITH KCL 20MEQ/L 1,000 ML IV SCH ×2 (16:27→23:25)
--- NOTE | 2021-02-09 18:00 | P.ANPRN ---
Procedure Note - Anesthesia - Nerve Block Performed Bilateral Erector Spinae Single Time Out Performed: Yes Date of Procedure: 02/09/21 Procedure Start Time: : Procedure Stop Time: :40 Location of Patient: PreOp Indication: Acute Post-Operative Pain, Dx/Pain Location, Requested by Surgeon Specifically requested for management of pain by DrStewart: José Manuel Estevez Sedation Type: Sedate with meaningful contact maintained Preparation: Sterile Prep Position: Sitting Needle Types: Pajunk Needle Gauge: 21 Ultrasound used to visualize needle placement: Yes Ultrasound used to observe medication spread: Yes Injectate: 0.5% Ropivacaine (see comment for volume) Blood Aspirated: No Pain Paresthesia on Injection Noted: No Resistance on Injection: Normal Image Stored and Saved: Yes Events: Uneventful and Well Tolerated (30cc 0.5% Ropivacaine)
[2021-02-09] MEDS: DOCUSATE 100 MG CAP PO SCH (20:40)
[2021-02-09] MEDS: FAMOTIDINE 20 MG TAB PO SCH (20:40)
[2021-02-10] MEDS: traMADol 50 MG TAB PO PRN ×3 (00:35→14:06)
[2021-02-10] MEDS: LACTATED RINGERS 1,000 ML IV SCH (01:47)
[2021-02-10] MEDS: HYDROmorphone 0.5 MG/0.5 ML SYRINGE IVP PRN (02:19)
[2021-02-10] MEDS ORDERED: LEVOTHYROXINE 100 MCG TAB PO SCH (06:30)
[2021-02-10] MEDS: FAMOTIDINE 20 MG TAB PO SCH (07:43)
[2021-02-10] MEDS: HEPARIN SODIUM,PORCINE/PF 5,000 UNIT/0.5 ML SYRINGE SQ SCH (07:43)
[2021-02-10] MEDS: DOCUSATE 100 MG CAP PO SCH (07:43)
[2021-02-10] MEDS: KETOROLAC 15 MG/ML 1 ML VIAL IVP PRN ×2 (08:04→14:06)
[2021-02-10 08:39] VITALS: RESP 16; TEMP 98.8
--- NOTE | 2021-02-10 13:32 | P.PN ---
<Emmanuelle Hoang - Last Filed: 02/10/21 13:29> Subjective Progress Note Date: 02/10/21 CHIEF COMPLAINT: Reducible incisional hernia HISTORY OF PRESENT ILLNESS: Patient is status post repair of reducible incisional hernia with mesh. Postoperative day #1. Reports that her pain is controlled. She has been up and ambulating. She ate oatmeal for breakfast this morning. She denies having a bowel movement passing gas. She's afebrile. She was tachycardic yesterday afternoon. Heart rate is 89. No new labs PHYSICAL EXAM: VITAL SIGNS: Reviewed. GENERAL: Well-developed in no acute distress. HEENT: No sclera icterus. Extraocular movements grossly intact. Moist buccal mucosa. Head is atraumatic, normocephalic. ABDOMEN: Soft. Nondistended. Nontender. Incision sites clean dry and intact LORNA drain sanguinous fluid NEUROLOGIC: Alert and oriented. Cranial nerves II through XII grossly intact. ASSESSMENT: 1. Reducible incisional hernia status post repair with mesh PLAN: -Advanced to regular diet as tolerated -Continue pain medication as needed -Encouraged patient to ambulate -Encouraged patient to use incentive spirometer Physician Engine Monitor note has been reviewed by physician. Signing provider agrees with the documented findings, assessment, and plan of care. Objective - Vital Signs Vital signs: Vital Signs Temp 98.8 F 02/10/21 08:15 Pulse 89 02/10/21 08:15 Resp 16 02/10/21 08:15 BP 133/84 02/10/21 08:15 Pulse Ox 95 02/10/21 08:15 Intake & Output 02/09/21 02/10/21 02/10/21 18:59 06:59 18:59 Intake Total 1250 950 Output Total 280 1160 10 Balance 970 -210 -10 Weight 100.9 kg Intake: IV 1250 Intake, IV Titration 450 Amount D5-0.45% NaCl with KCl 450 20Meq/l 1,000 ml @ 75 mls /hr IV .[id number] [facility] Rx#: [id number] Oral 500 Output: Drainage 35 60 10 Abdomen 35 60 10 Urine 200 1100 Estimated Blood Loss 45 Other: Voiding Method Toilet # Voids 1 2 <José Manuel Estevez - Last Filed: 02/10/21 15:36> Objective - Vital Signs Vital signs: Vital Signs Temp 98.8 F 02/10/21 14:25 Pulse 88 02/10/21 15:15 Resp 16 02/10/21 14:25 BP 135/83 02/10/21 15:15 Pulse Ox 95 02/10/21 14:25 Intake & Output 02/09/21 02/10/21 02/10/21 18:59 06:59 18:59 Intake Total 1250 950 Output Total 280 1160 30 Balance 970 -210 -30 Weight 100.9 kg Intake: IV 1250 Intake, IV Titration 450 Amount D5-0.45% NaCl with KCl 450 20Meq/l 1,000 ml @ 75 mls /hr IV .[id number] [facility] Rx#: [id number] Oral 500 Output: Drainage 35 60 30 Abdomen 35 60 30 Urine 200 1100 Estimated Blood Loss 45 Other: Voiding Method Toilet # Voids 1 2
--- NOTE | 2021-02-10 13:43 | P.CONS ---
History of Present Illness - Reason for Consult Consult date: 02/10/21 Medical management - History of Present Illness HISTORY OF PRESENT ILLNESS This is a 50-year-old female patient of Dr. 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 Stafford. Patient subsequently developed reducible incisional hernia at the surgical site. Patient was brought into the hospital by Dr. Estevez status post incisional hernia repair with mesh pleated yesterday. Patient has had no postoperative complications. Her pain is currently controlled. She has had no nausea or vomiting and is tolerating diet although she states she has decreased appetite. REVIEW OF SYSTEMS Constitutional: No fever, no chills, no night sweats. No weight change. No weakness, fatigue or lethargy. No daytime sleepiness. EENT: No headache. No blurred vision or double vision, no loss of vision. No dizziness. No nasal drainage or congestion. No epistaxis. No sore throat. Lungs: No shortness of breath, cough, no sputum production. No wheezing. Cardiovascular: No chest pain, no lower extremity edema. No palpitations. No paroxysmal nocturnal dyspnea. No orthopnea. No lightheadedness or dizziness. No syncopal episodes. Abdominal: Mild abdominal discomfort. No nausea, vomiting. No diarrhea. No constipation. No bloody or tarry stools mild decreased appetite. Genitourinary: No dysuria, increased frequency, urgency. No urinary retention. Musculoskeletal: No myalgias. No muscle weakness, no gait dysfunction, no frequent falls. No back pain. No neck pain. Integumentary: No wounds, no lesions. No rash or pruritus. No unusual bruising. Neurologic: No aphasia. No facial droop. No change in mentation. No head injury. No headache. No paralysis. No paresthesia. Psychiatric: No depression. No anxiety. Endocrine: No abnormal blood sugars. MEDIAL HISTORY Seasonal ALLERGIES, hypothyroidism, Covid 19 infection August 2020, history of solitary fibrous tumor. SURGICAL HISTORY Solitary fibrous tumor removed January [address] Stafford, incisional hernia repair 01/[address] Estevez, vaginal hysterectomy for fibroid uterus, tubal ligation, cholecystectomy, breast augmentation, tummy tuck, sinus surgery. SOCIAL HISTORY Patient smoked cigarettes on and off for 10 years and quit 7 years ago. She drinks wine socially. No illicit drug use. She does not have oxygen, nebulizer, CPAP. FAMILY HISTORY Mother is alive with history of hypothyroidism. Father is alive with no major medical problems. Patient is for brothers with no major medical problems. She has no sisters. Patient has one son and one daughter both with ADD. PHYSICAL EXAMINATION Gen: This is a 50-year-old female. She is resting in bed and appears to be comfortable and in no acute distress. HEENT: Head is atraumatic, normocephalic. Pupils equal, round. Sclerae is anicteric. NECK: Supple. No JVD. No lymphadenopathy. No thyromegaly. LUNGS: Clear to auscultation. No wheezes or rhonchi. No intercostal retractions. HEART: Regular rate and rhythm. No murmur. ABDOMEN: Soft. Bowel sounds are present. No masses. No tenderness. Incision sites with no significant drainage or erythema. LORNA drain with sanguinous fluid. EXTREMITIES: No pedal edema. No calf tenderness. Dorsalis pedis +2 bilaterally. NEUROLOGICAL: Patient is awake, alert and oriented x3. Cranial nerves 2 through 12 are grossly intact. ASSESSMENT AND PLAN 1. Reducible incisional hernia status post repair with mesh, postop day #1. Continue current pain management, increase activity, advance diet, continue incentive spirometry to reduce incidence of atelectasis and hospital-acquired pneumonia. 2. Seasonal ALLERGIES stable. 3. Hypothyroidism. Continue levothyroxine 100 g daily. 4. History of solitary fibrous tumor removal in January 2020 by cindi Mcgill. 5. History of Covid 19 infection in August 2020, stable. 6. GI prophylaxis. Pepcid 20 mg twice daily. 7. DVT prophylaxis. Heparin subcu. 8. COVID-19 testing negative. Patient has been hospitalized during a pandemic. DISCHARGE PLAN Home. Impression and plan of care have been directed as dictated by the signing phys darell. Kya Lai nurse practitioner acting as scribe for signing physician. Past Medical History Past Medical History: Thyroid Disorder History of Any Multi-Drug Resistant Organisms: None Reported Past Surgical History: Breast Surgery, Cholecystectomy, Hysterectomy, Tubal Ligation Additional Past Surgical History / Comment(s): sinus surg., breast augmentation, tummy tuck,benign mass removed from near spleen Past Anesthesia/Blood Transfusion Reactions: Motion Sickness, Postoperative Nausea & Vomiting (PONV) Smoking Status: Former smoker - Past Family History Mother Family Medical History: No Reported History Medications and Allergies Home Medications Medication Instructions Recorded Confirmed Type Levocetirizine Dihydrochloride 5 mg PO HS PRN 11/07/20 02/05/21 History [Xyzal] Levothyroxine Sodium [Tirosint] 100 mcg PO DAILY 11/07/20 02/05/21 History Allergies Allergy/AdvReac Type Severity Reaction Status Date / Time codeine Allergy Itching/vom Verified 02/09/21 08:24 iting Physical Exam Vitals: Vital Signs Temp Pulse Pulse Resp BP BP Pulse Ox 02/10/21 08:15 98.8 F 89 16 133/84 95 02/10/21 01:15 98.4 F 73 18 131/90 94 L 02/09/21 21:37 114 H 16 120/81 96 02/09/21 17:40 104 H 16 135/85 96 02/09/21 16:40 109 H 16 146/94 94 L 02/09/21 15:40 107 H 16 131/91 96 02/09/21 15:10 80 16 133/86 96 02/09/21 14:40 97 16 118/84 95 02/09/21 14:25 82 16 145/83 95 02/09/21 14:10 80 16 150/84 93 L 02/09/21 13:55 98.1 F 74 16 171/75 93 L 02/09/21 13:19 76 14 151/74 96 02/09/21 13:16 67 16 176/79 92 L 02/09/21 13:00 89 16 145/86 100 02/09/21 12:44 71 14 158/87 100 02/09/21 12:30 83 14 177/99 100 02/09/21 12:15 97.7 F 93 16 166/98 97 02/09/21 09:16 76 18 143/89 99 02/09/21 08:40 98.3 F 87 20 140/86 99 Intake and Output 02/09/21 02/10/21 02/10/21 22:59 06:59 14:59 Intake Total 950 Output Total 485 910 10 Balance -485 40 -10 Intake: Intake, IV Titration 450 Amount D5-0.45% NaCl with KCl 450 20Meq/l 1,000 ml @ 75 mls /hr IV .[id number] [facility] Rx#: [id number] Oral 500 Output: Drainage 35 60 10 Abdomen 35 60 10 Urine 450 850 Other: Voiding Method Toilet # Voids 1 2
[2021-02-10 15:22] VITALS: BP 135/83; PULSE 88
--- NOTE | 2021-02-10 15:36 | P.DS ---
Providers Date of admission: 02/09/21 20:29 Expected date of discharge: 02/10/21 Attending physician: José Manuel Estevez Consults: 02/09/21 12:03 Consult Physician Routine Consulting Provider: Yulissa Morris Consult Reason/Comments: Medical management Do you want consulting provider notified?: Yes Primary care physician: Yulissa Morris [facility] Course: Patient admitted electively yesterday after repair large incisional hernia. Patient was kept for analgesic purposes. Doing well today. Tolerating pain with oral meds only. LORNA drain serosanguineous. Will discharge. Follow-up one week. Plan - Discharge Summary Discharge Rx Participant: Yes New Discharge Prescriptions: New traMADol HCl [Ultram] 50 mg PO Q6H PRN #12 tab PRN Reason: Pain Continue Levothyroxine Sodium [Tirosint] 100 mcg PO DAILY Levocetirizine Dihydrochloride [Xyzal] 5 mg PO HS PRN PRN Reason: Sinus Symptoms Discharge Medication List Levocetirizine Dihydrochloride [Xyzal] 5 mg PO HS PRN 11/07/20 [History] Levothyroxine Sodium [Tirosint] 100 mcg PO DAILY 11/07/20 [History] traMADol HCl [Ultram] 50 mg PO Q6H PRN #12 tab 02/10/21 [Rx] Follow up Appointment(s)/Referral(s): José Manuel Estevez MD [Medical Doctor] - 02/19/21 9:00 am Yulissa Morris MD [Primary Care Provider] - 1 Week Patient Instructions/Handouts: *Surgery [facility] - Scopalamine Patch Instructions
== END 2021-02-10 17:45 | disposition home or self-care (01) ==
LOC: OR 08:02 → 6PED 12:48 → OR 20:29 → 6PED 20:29
PROVIDERS: ADMIT Surgery; ATTEND Surgery
DX: K43.2 Incisional hernia without obstruction or gangrene (principal); E03.9 Hypothyroidism, unspecified; R00.0 Tachycardia, unspecified; J30.2 Other seasonal allergic rhinitis; Z20.822 Contact with and (suspected) exposure to COVID-19; Z79.890 Hormone replacement therapy; Z88.5 Allergy status to narcotic agent; Z86.16 Personal history of COVID-19; Z87.891 Personal history of nicotine dependence; Z90.49 Acquired absence of other specified parts of digestive tract; Z90.710 Acquired absence of both cervix and uterus; Z98.51 Tubal ligation status; Z98.82 Breast implant status; Z98.890 Other specified postprocedural states; Z83.49 Family history of other endocrine, nutritional and metabolic diseases
CPT/HCPCS: 64999; 76942; 88302; 87635; 49560; 49568; G0378 ×2; C1781; J2250; J1100; J2710; J0690; J2405; J2001; J3010; J1170 ×3; J2795; J1885 ×2; J0330; J2704; J1644 ×2